=== PATIENT | male | born 1960 | race Caucasian/White ===

== ENCOUNTER 2018-10-20 04:46 | Inpatient (IN) ==
[2018-10-20] MEDS ORDERED: ASPIRIN 325 MG TABLET PO STA (05:10)
[2018-10-20 05:26] LABS: Basophils % 0.2 % (0.0-0.8); Eosinophils # 0.1 10*3/uL (0.0-0.87); Eosinophils % 0.6 % (0.00-10.9); Hematocrit 42.7 VOL% (42.0-52.0); Hemoglobin 14.8 GM/DL (14.0-18.0); Immature Granulocytes % 0.4 %; Immature Granulocytes Absolute 0.05 #; Lymphocytes # 2.5 10*3/uL (1.4-4.0); Lymphocytes % 20.8 % (21.2-54.2); Mean Corpuscular HGB Conc 34.7 GM/DL (32-36); Mean Corpuscular Hemoglobin 33 PG (27-34); Mean Corpuscular Volume 95.7 FL (87-102); Mean Platelet Volume 10.8 FL (9.6-12.0); Monocytes # 1.2 10*3/uL (0.11-0.8); Monocytes % 9.7 % (1.7-12.7); Neutrophils # 8.3 10*3/uL (1.4-7.4); Neutrophils % 68.3 % (38.7-73.9); Platelet Count 196 T/CUMM (130-400); Red Blood Count 4.46 MC/CUMM (3.8-5.5); Red Cell Distribution Width 12.2 % (9.3-17.3); White Blood Count 12.1 T/CUMM (4-12)
[2018-10-20 05:42] LABS: Albumin 3.9 G/DL (3.4-5.0); Bilirubin,Total 0.8 MG/DL (0.2-1.0); Calcium 9.7 MG/DL (8.5-10.1); Osmolality,Calculated 273.7 MOS/KG (273-304); Potassium 3.5 MMOL/L (3.5-5.1); Total Protein 7.6 G/DL (6.4-8.3)
[2018-10-20] MEDS ORDERED: MAGNESIUM SULF RIDER 4 GM in PREMIX 1 EACH IV PRN (07:06)
[2018-10-20] MEDS ORDERED: MAGNESIUM SULF RIDER 2 GM in PREMIX 1 EACH IV PRN ×2 (07:06→10:17)
[2018-10-20] MEDS ORDERED: NITROGLYCERIN SL 0.4 MG TABLET SL PRN (07:09)
[2018-10-20] MEDS ORDERED: NITROGLYCERIN 2% OINT 1 INCH/GM PACK TOP STA (07:15)
[2018-10-20] MEDS ORDERED: NITROGLYCERIN 2% OINT 1 INCH/GM PACK TOP ONE (07:16)
[2018-10-20] MEDS: ENOXAPARIN 80 MG/0.8 ML SYRINGE SUBCUT SCH ×2 (09:55→20:31)
[2018-10-20] MEDS: METOPROLOL TARTRATE 50 MG TABLET PO SCH ×2 (09:56→20:30)
[2018-10-20] MEDS: TICAGRELOR 90 MG TABLET PO SCH ×2 (09:56→20:31)
[2018-10-20] MEDS: ASPIRIN EC 81 MG TABLET PO SCH (09:59)
[2018-10-20] MEDS: LISINOPRIL 20 MG TABLET PO SCH (09:59)
[2018-10-20] MEDS: buPROPion SR 150 MG TABLET PO SCH ×2 (10:00→20:32)
[2018-10-20] MEDS ORDERED: diphenhydrAMINE CAP 25 MG CAPSULE PO ONE (10:17)
[2018-10-20] MEDS ORDERED: POTASSIUM CHLORIDE RIDER 10 MEQ in PREMIX 1 EACH IV PRN (10:17)
[2018-10-20] MEDS ORDERED: DIAZEPAM 5 MG TABLET PO ONE (10:17)
[2018-10-20] MEDS: SODIUM CHLORIDE 0.9% 1,000 ML IV SCH ×3 (10:28→22:56)
[2018-10-20] MEDS: PANTOPRAZOLE 40 MG TABLET PO PRN (10:33)
[2018-10-20] MEDS: ALBUTEROL/IPRATROPIUM 3 ML NEB RESP TX SCH ×3 (10:39→18:50)
[2018-10-20 10:40] LABS: Troponin I 0.048 NG/ML (0.00-0.045)
[2018-10-20] MEDS ORDERED: HEPARIN/NACL 0.9% 2 UNITS/ML 1,000 ML IV ONE (10:42)
[2018-10-20] MEDS ORDERED: LIDOCAINE 1% 20 ML VIAL ONE (10:42)
[2018-10-20] MEDS ORDERED: LEVOFLOXACIN INJ 750 MG in PREMIX 1 EACH IV SCH (11:00)
[2018-10-20] MEDS ORDERED: MIDAZOLAM 2 MG/2 ML VIAL ONE (11:03)
[2018-10-20] MEDS ORDERED: HYDROmorphone 2 MG/1 ML VIAL ONE (11:03)
[2018-10-20] MEDS ORDERED: diphenhydrAMINE 50 MG/1 ML VIAL ONE (11:08)
[2018-10-20] MEDS ORDERED: ZALEPLON 5 MG CAPSULE PO PRN (11:34)
[2018-10-20] MEDS ORDERED: ONDANSETRON 4 MG/2 ML VIAL IV PRN (11:34)
[2018-10-20] MEDS ORDERED: IBUPROFEN 800 MG TABLET PO PRN (11:37)
[2018-10-20] MEDS ORDERED: LOVASTATIN 20 MG TABLET PO SCH (21:00)
[2018-10-21] MEDS: ALBUTEROL/IPRATROPIUM 3 ML NEB RESP TX SCH ×3 (00:22→07:55)
[2018-10-21 05:48] LABS: Calcium 8.3 MG/DL (8.5-10.1); Osmolality,Calculated 282.1 MOS/KG (273-304); Potassium 3.8 MMOL/L (3.5-5.1)
[2018-10-21 05:53] LABS: Risk Ratio 5.78; VLDL CHOLESTEROL 29.2 MG/DL
[2018-10-21] MEDS: SODIUM CHLORIDE 0.9% 1,000 ML IV SCH (05:55)
[2018-10-21] MEDS: ENOXAPARIN 80 MG/0.8 ML SYRINGE SUBCUT SCH (07:57)
[2018-10-21 08:06] VITALS: BP 150/83
[2018-10-21] MEDS: TICAGRELOR 90 MG TABLET PO SCH (09:00)
[2018-10-21] MEDS ORDERED: COLCHICINE 0.6 MG TABLET PO SCH (09:00)
[2018-10-21] MEDS ORDERED: ENOXAPARIN 40 MG/0.4 ML SYRINGE SUBCUT SCH (09:00)
[2018-10-21] MEDS: buPROPion SR 150 MG TABLET PO SCH (09:00)
[2018-10-21] MEDS: METOPROLOL TARTRATE 50 MG TABLET PO SCH (09:00)
[2018-10-21] MEDS: ASPIRIN EC 81 MG TABLET PO SCH (09:01)
[2018-10-21] MEDS: LISINOPRIL 20 MG TABLET PO SCH (09:01)
[2018-10-21] MEDS: PANTOPRAZOLE 40 MG TABLET PO PRN (09:06)
[2018-10-21] MEDS ORDERED: SIMVASTATIN 40 MG TABLET PO SCH (21:00)
== END 2018-10-21 11:41 | disposition home or self-care (01) | DRG 191 ==
LOC: N.ED 04:46 → N.EDINP 07:06 → N.TELEN 08:58
PROVIDERS: ADMIT Internal Medicine Cardiovascular Disease; ATTEND Internal Medicine Cardiovascular Disease
PROC: CLCCHCL (ICD-10-PCS; 2018-10-20 11:15)

== ENCOUNTER 2022-06-21 09:44 | Inpatient (IN) ==
[~2022-06-21 09:44] MED LIST: DEXTROSE 10% 250 ML BAG IV PRN; GLUCAGON 1 MG VIAL IM PRN; SODIUM CHLORIDE 0.9% 1,000 ML IV SCH
[2022-06-21] MEDS ORDERED: CLORAZEPATE 3.75 MG TABLET PO PRN (09:52)
[2022-06-21] MEDS ORDERED: MORPHINE 2 MG/1 ML SYRINGE IV PRN (09:53)
[2022-06-21] MEDS ORDERED: NITROGLYCERIN SL 0.4 MG TABLET SL PRN (09:53)
[2022-06-21] MEDS ORDERED: DEXTROSE 10% 250 ML BAG IV PRN (10:00)
[2022-06-21 10:55] LABS: Basophils % 0.3 % (0.0-0.8); Eosinophils # 0.2 10*3/uL (0.0-0.87); Eosinophils % 2.8 % (0.00-10.9); Hematocrit 40.5 VOL% (42.0-52.0); Hemoglobin 13.6 GM/DL (14.0-18.0); Immature Granulocytes % 0.5 %; Immature Granulocytes Absolute 0.04 #; Lymphocytes # 2.5 10*3/uL (1.4-4.0); Mean Corpuscular HGB Conc 33.6 GM/DL (32-36); Mean Corpuscular Volume 97.6 FL (87-102); Mean Platelet Volume 11.5 FL (9.6-12.0); Monocytes % 12.9 % (1.7-12.7); Neutrophils % 50.5 % (38.7-73.9); Platelet Count 211 T/CUMM (130-400); Red Blood Count 4.15 MC/CUMM (3.8-5.5); Red Cell Distribution Width 12.7 % (9.3-17.3); White Blood Count 7.5 T/CUMM (4-12)
[2022-06-21 11:14] LABS: Albumin 3.8 G/DL (3.4-5.0); Bilirubin,Total 0.4 MG/DL (0.20-1.00); Calcium 9.7 MG/DL (8.5-10.1); Potassium 4.2 MMOL/L (3.5-5.1); Total Protein 7.4 G/DL (6.4-8.2)
[2022-06-21] MEDS: CHLORHEXIDINE 0.12% ORAL RINSE 60 ML BOTTLE SWISH/SPIT SCH ×2 (13:32→20:52)
[2022-06-21] MEDS ORDERED: PANTOPRAZOLE 40 MG TABLET PO ONE (15:00)
[2022-06-21] MEDS ORDERED: DIAZEPAM 5 MG TABLET PO ONE (15:00)
[2022-06-21] MEDS: CHLORHEXIDINE 4% SOLN 118 ML BOTTLE TOP SCH ×2 (17:19→20:53)
[2022-06-21 18:06] LABS: Arterial Base Excess iSTAT -2 MMOL/L (-2.5-2.5); Arterial Bicarbonate iSTAT 22.5 MMOL/L (20-26); Arterial O2 Saturation iSTAT 96 % (95-100); Arterial PCO2 iSTAT 38 MM HG (35-48); Arterial PO2 iSTAT 81 MM HG (80-95); Arterial Total CO2 iSTAT 24 MMO/L (23-27); Arterial pH iSTAT 7.383 (7.35-7.45)
[2022-06-21 18:06] LABS: Arterial Base Excess iSTAT 0 MMOL/L (-2.5-2.5); Arterial Bicarbonate iSTAT 25.9 MMOL/L (20-26); Arterial O2 Saturation iSTAT 48 % (95-100); Arterial PCO2 iSTAT 47 MM HG (35-48); Arterial PO2 iSTAT 28 MM HG (80-95); Arterial Total CO2 iSTAT 27 MMO/L (23-27)
[2022-06-21] MEDS: buPROPion SR 150 MG TABLET PO SCH (20:52)
[2022-06-21] MEDS: METOPROLOL TARTRATE 50 MG TABLET PO SCH (20:52)
[2022-06-21] MEDS ORDERED: ROSUVASTATIN 20 MG TABLET PO SCH (21:00)
[2022-06-22] MEDS ORDERED: PAPAVERINE 60 MG/2 ML VIAL ONE (04:16)
[2022-06-22] MEDS ORDERED: VANCOMYCIN 1,000 MG VIAL ONE (04:17)
[2022-06-22] MEDS ORDERED: VANCOMYCIN 500 MG VIAL ONE (04:17)
[2022-06-22] MEDS: CHLORHEXIDINE 4% SOLN 118 ML BOTTLE TOP SCH (04:46)
[2022-06-22] MEDS ORDERED: CEFUROXIME INJ 1,500 MG in SODIUM CHLORIDE 0.9% 100 ML IV ONE (05:00)
[2022-06-22] MEDS ORDERED: VECURONIUM 10 MG VIAL IV ONE ×3 (05:26→08:32)
[2022-06-22] MEDS ORDERED: LIDOCAINE 2% 5 ML VIAL ONE ×2 (05:26→10:14)
[2022-06-22] MEDS ORDERED: ETOMIDATE 40 MG/20 ML VIAL IV ONE (05:29)
[2022-06-22] MEDS ORDERED: ePHEDrine 50 MG/ML VIAL ONE (05:34)
[2022-06-22] MEDS ORDERED: MIDAZOLAM 10 MG/2 ML VIAL ONE ×4 (05:38→09:19)
[2022-06-22] MEDS ORDERED: SODIUM CHLORIDE 0.9% 250 ML IV ONE (05:40)
[2022-06-22] MEDS ORDERED: AMINOCAPROIC ACID 5,000 MG/20 ML VIAL ONE (05:40)
[2022-06-22] MEDS ORDERED: SUFentanil 250 MCG/5 ML AMP ONE ×2 (05:54→05:55)
[2022-06-22] MEDS ORDERED: PANTOPRAZOLE 40 MG TABLET PO ONE (06:00)
[2022-06-22] MEDS ORDERED: DIAZEPAM 5 MG TABLET PO ONE (06:00)
[2022-06-22 07:26] LABS: ABG Base Excess -1.1 MMOL/L (-2.5-2.5); ABG HCO3 23.5 MMOL/L (20-26); ABG Oxygen Saturation 99.4 % (95-100); ABG PCO2 44.8 MM HG (35-48); ABG PH 7.351 (7.35-7.45); ABG TCO2 21.7 MMOL/L (23-27); Glucose Heart Surgery 121 MG/DL (74-106); Hematocrit Heart Surgery 40.3 PERCENT (42-52); Hemoglobin Heart Surgery 13.1 G/DL (14.0-18.0); Ionized Calcium Arterial 1.22 MMOL/L (1.21-1.46); PCO2 Patient Temp Arterial 44.8 MMHG; PH Patient Temp Arterial 7.351; Patient Temperature 37 CELCIUS; Potassium Heart/CVR 4.1 MMOL/L (3.5-5.1); Sodium Heart/CVR 141 MMOL/L (135-145)
[2022-06-22 08:06] LABS: RBC,Urine <1 /HPF (0-4); Squamous Epithelial Cell,Urine Occasional /HPF (0-10)
[2022-06-22 08:07] LABS: Bilirubin,Urine Negative (Negative); Blood, Urine Trace mg/dL (Negative); Glucose,Urine (UA) Negative (Negative); Ketones,Urine Negative (Negative); Nitrite,Urine Negative (Negative); Protein,Urine Negative (Negative); Urine Appearance Clear (Clear); Urine Color Yellow (Yellow); Urine Urobilinogen 0.2 eU/dL (<2.0)
[2022-06-22] MEDS ORDERED: SEVOFLURANE 1 UNIT/15 MINUTE INH ONE ×12 (08:14→10:02)
[2022-06-22] MEDS ORDERED: SODIUM CHLORIDE 0.9% 100 ML IV ONE (08:14)
[2022-06-22] MEDS ORDERED: NITROPRUSSIDE 50 MG/2 ML VIAL ONE (08:59)
[2022-06-22] MEDS ORDERED: POTASSIUM CHLORIDE RIDER 20 MEQ/100 ML PREMIX IV ONE (08:59)
[2022-06-22] MEDS ORDERED: SODIUM BICARBONATE 50 MEQ/50 ML VIAL IV ONE ×2 (08:59→10:16)
[2022-06-22] MEDS ORDERED: PHENYLEPHRINE DRIP 40 MG/250 ML PREMIX IV ONE (09:00)
[2022-06-22] MEDS ORDERED: CALCIUM CHLORIDE 1,000 MG/10 ML SYRINGE IV ONE (09:00)
[2022-06-22] MEDS ORDERED: HEPARIN/NACL 0.9% 2 UNITS/ML 1,000 UNIT/500 ML BAG IV ONE (09:05)
[2022-06-22 09:07] LABS: Hematocrit Heart Surgery 29.4 PERCENT (42-52); Hemoglobin Heart Surgery 9.5 G/DL (14.0-18.0); PCO2 Patient Temp Venous 44.7 MM HG; PH Patient Temp Venous 7.35; PO2 Patient Temp Venous 44.3 MM HG; VBG HCO3 23.4 MEQ/L (24-28); VBG Oxygen Saturation 82.1 %; VBG PCO2 49.2 MMHG (41-51); VBG PH 7.322; VBG PO2 50.8 MMHG (17-40); VBG Total CO2 23.6 MMOL/L
[2022-06-22] MEDS ORDERED: PHENYLEPHRINE DRIP 20 MG/250 ML PREMIX IV ONE (09:08)
[2022-06-22] MEDS: buPROPion SR 150 MG TABLET PO SCH (09:18)
[2022-06-22] MEDS: CHLORHEXIDINE 0.12% ORAL RINSE 60 ML BOTTLE SWISH/SPIT SCH ×2 (09:18→20:32)
[2022-06-22] MEDS: METOPROLOL TARTRATE 50 MG TABLET PO SCH (09:18)
[2022-06-22 09:34] LABS: Hematocrit Heart Surgery 30.3 PERCENT (42-52); Hemoglobin Heart Surgery 9.8 G/DL (14.0-18.0); PCO2 Patient Temp Venous 43.3 MM HG; PH Patient Temp Venous 7.395; PO2 Patient Temp Venous 41.2 MM HG; Potassium Heart/CVR 5.5 MMOL/L (3.5-5.1); VBG Base Excess 1.5 MEQ/L (0-4); VBG HCO3 25.4 MEQ/L (24-28); VBG Oxygen Saturation 78.2 %; VBG PCO2 45.5 MMHG (41-51); VBG PH 7.381; VBG PO2 44.2 MMHG (17-40); VBG Total CO2 24.7 MMOL/L
[2022-06-22] MEDS ORDERED: CALCIUM CHLORIDE 1,000 MG/10 ML VIAL IV ONE (09:41)
[2022-06-22 10:03] LABS: ABG Base Excess 0.3 MMOL/L (-2.5-2.5); ABG HCO3 24.6 MMOL/L (20-26); ABG PCO2 43.6 MM HG (35-48); ABG PH 7.377 (7.35-7.45); ABG PO2 82.5 MM HG (80-95); ABG TCO2 23.1 MMOL/L (23-27); Glucose Heart Surgery 210 MG/DL (74-106); Hematocrit Heart Surgery 33.3 PERCENT (42-52); Hemoglobin Heart Surgery 10.8 G/DL (14.0-18.0); Ionized Calcium Arterial 1.24 MMOL/L (1.21-1.46); PCO2 Patient Temp Arterial 43.6 MMHG; PH Patient Temp Arterial 7.377; PO2 Patient Temp Arterial 82.5 MM HG; Patient Temperature 37 CELCIUS; Potassium Heart/CVR 4.7 MMOL/L (3.5-5.1); Sodium Heart/CVR 136 MMOL/L (135-145)
[2022-06-22] MEDS ORDERED: methylPREDNISolone SOD SUC 1,000 MG/8 ML VIAL ONE (10:14)
[2022-06-22] MEDS ORDERED: DEXTROSE 5% KCL 20 MEQ 20 MEQ/1,000 ML BAG IV ONE (10:14)
[2022-06-22] MEDS ORDERED: MAGNESIUM SULFATE 5 GM/10 ML VIAL IV ONE (10:14)
[2022-06-22] MEDS ORDERED: ALBUMIN 25% 25 GM/100 ML VIAL IV ONE (10:14)
[2022-06-22] MEDS ORDERED: PROTAMINE SULFATE 250 MG/25 ML VIAL IV ONE (10:14)
[2022-06-22] MEDS ORDERED: FUROSEMIDE 20 MG/2 ML VIAL ONE (10:15)
[2022-06-22] MEDS ORDERED: HEPARIN 10,000 UNIT/10 ML VIAL ONE (10:15)
[2022-06-22] MEDS ORDERED: MANNITOL 12.5 GM/50 ML VIAL IV ONE (10:15)
[2022-06-22] MEDS ORDERED: PROTAMINE SULFATE 50 MG/5 ML VIAL IV ONE (10:15)
[2022-06-22] MEDS ORDERED: ACETAMINOPHEN 650 MG SUPP RECTAL PRN (10:23)
[2022-06-22] MEDS ORDERED: NITROPRUSSIDE 100 MG in DEXTROSE 5% 250 ML IV PRN (10:23)
[2022-06-22] MEDS ORDERED: ONDANSETRON 4 MG/2 ML VIAL IV PRN (10:23)
[2022-06-22] MEDS ORDERED: MIDAZOLAM 2 MG/2 ML VIAL IV PRN (10:23)
[2022-06-22] MEDS ORDERED: INSULIN REGULAR 100 UNIT/ML IV ONE (10:23)
[2022-06-22] MEDS ORDERED: PHENYLEPHRINE DRIP 40 MG/250 ML PREMIX IV PRN (10:23)
[2022-06-22] MEDS ORDERED: CHLORHEXIDINE 4% SOLN 118 ML BOTTLE TOP PRN (10:23)
[2022-06-22] MEDS ORDERED: MAGNESIUM SULF RIDER 4 GM/100 ML PREMIX IV PRN (10:23)
[2022-06-22] MEDS ORDERED: MIDAZOLAM 10 MG/2 ML VIAL IV PRN (10:23)
[2022-06-22] MEDS ORDERED: CALCIUM CHLORIDE 1,000 MG/10 ML SYRINGE IV PRN (10:23)
[2022-06-22] MEDS ORDERED: DEXTROSE 10% 250 ML BAG IV PRN ×2 (10:23)
[2022-06-22] MEDS ORDERED: POTASSIUM CHLORIDE RIDER 10 MEQ/100 ML PREMIX IV PRN (10:23)
[2022-06-22] MEDS ORDERED: MORPHINE 10 MG/1 ML VIAL IV PRN (10:23)
[2022-06-22] MEDS ORDERED: INSULIN REGULAR 100 UNIT/ML IV PRN (10:23)
[2022-06-22] MEDS ORDERED: MAGNESIUM SULF RIDER 2 GM/50 ML PREMIX IV PRN (10:23)
[2022-06-22] MEDS ORDERED: VECURONIUM 10 MG VIAL IV PRN ×2 (10:23)
[2022-06-22] MEDS ORDERED: MORPHINE 2 MG/1 ML SYRINGE ONE (10:29)
[2022-06-22] MEDS ORDERED: MIDAZOLAM 2 MG/2 ML VIAL ONE (10:29)
[2022-06-22] MEDS ORDERED: SODIUM CHLORIDE 0.45% 1,000 ML IV SCH ×2 (10:30)
[2022-06-22] MEDS ORDERED: INSULIN REGULAR DRIP 100 ML IV SCH (10:30)
[2022-06-22 11:06] LABS: ABG Base Excess 1.9 MMOL/L (-2.5-2.5); ABG HCO3 26.1 MMOL/L (20-26); ABG Oxygen Saturation 96.6 % (95-100); ABG PCO2 43.4 MM HG (35-48); ABG PH 7.403 (7.35-7.45); ABG PO2 86.6 MM HG (80-95); ABG TCO2 23.7 MMOL/L (23-27); Glucose Heart Surgery 180 MG/DL (74-106); Hematocrit Heart Surgery 39.5 PERCENT (42-52); Hemoglobin Heart Surgery 12.9 G/DL (14.0-18.0); Potassium Heart/CVR 3.9 MMOL/L (3.5-5.1)
[2022-06-22 11:09] LABS: Basophils % 0.3 % (0.0-0.8); Eosinophils # 0.1 10*3/uL (0.0-0.87); Eosinophils % 0.7 % (0.00-10.9); Hematocrit 36.9 VOL% (42.0-52.0); Hemoglobin 12.5 GM/DL (14.0-18.0); Immature Granulocytes % 0.9 %; Lymphocytes # 1.2 10*3/uL (1.4-4.0); Lymphocytes % 10.5 % (21.2-54.2); Mean Corpuscular HGB Conc 33.9 GM/DL (32-36); Mean Corpuscular Volume 97.4 FL (87-102); Mean Platelet Volume 11.6 FL (9.6-12.0); Monocytes # 0.8 10*3/uL (0.11-0.8); Monocytes % 6.6 % (1.7-12.7); Platelet Count 174 T/CUMM (130-400); Red Blood Count 3.79 MC/CUMM (3.8-5.5); Red Cell Distribution Width 12.6 % (9.3-17.3); White Blood Count 11.4 T/CUMM (4-12)
[2022-06-22] MEDS: POTASSIUM CHLORIDE RIDER 20 MEQ/100 ML PREMIX IV PRN ×3 (11:20→14:20)
[2022-06-22 11:22] LABS: PT Patient Result 11.4 SECS (10.1-12.1); Partial Thromboplastin Time 27.6 SECS (23.7-32.9)
[2022-06-22] MEDS ORDERED: DEXMEDETOMIDINE 200 MCG in SODIUM CHLORIDE 0.9% 48 ML IV PRN (11:23)
[2022-06-22 11:27] LABS: CKMB % 5.19 %
[2022-06-22 11:30] LABS: High Sensitive Troponin I* 2922.8 ng/L (0-78)
[2022-06-22 11:35] LABS: Albumin 3.7 G/DL (3.4-5.0); Bilirubin,Total 0.7 MG/DL (0.20-1.00); Calcium 9.3 MG/DL (8.5-10.1); Osmolality,Calculated 281.4 MOS/KG (273-304); Potassium 3.9 MMOL/L (3.5-5.1); Total Protein 6.9 G/DL (6.4-8.2)
[2022-06-22 12:13] LABS: ABG Base Excess 1.7 MMOL/L (-2.5-2.5); ABG HCO3 25.9 MMOL/L (20-26); ABG Oxygen Saturation 97.7 % (95-100); ABG PCO2 42.6 MM HG (35-48); ABG PH 7.404 (7.35-7.45); ABG PO2 99.6 MM HG (80-95); ABG TCO2 23.3 MMOL/L (23-27); Glucose Heart Surgery 160 MG/DL (74-106); Hematocrit Heart Surgery 40.1 PERCENT (42-52); Potassium Heart/CVR 4.7 MMOL/L (3.5-5.1)
[2022-06-22] MEDS: ALBUMIN 5% 12.5 GM/250 ML VIAL IV PRN ×5 (13:10→21:23)
[2022-06-22] MEDS: MORPHINE 2 MG/1 ML SYRINGE IV PRN (13:24)
[2022-06-22 14:05] LABS: ABG Base Excess 0.1 MMOL/L (-2.5-2.5); ABG HCO3 24.5 MMOL/L (20-26); ABG Oxygen Saturation 96.8 % (95-100); ABG PCO2 49.7 MM HG (35-48); ABG PH 7.337 (7.35-7.45); ABG PO2 95.5 MM HG (80-95); ABG TCO2 23.6 MMOL/L (23-27); Glucose Heart Surgery 159 MG/DL (74-106); Hematocrit Heart Surgery 38.6 PERCENT (42-52); Hemoglobin Heart Surgery 12.6 G/DL (14.0-18.0); Potassium Heart/CVR 4.4 MMOL/L (3.5-5.1)
[2022-06-22 15:00] LABS: ABG Base Excess 0.2 MMOL/L (-2.5-2.5); ABG HCO3 24.5 MMOL/L (20-26); ABG PCO2 46.3 MM HG (35-48); ABG PH 7.359 (7.35-7.45); ABG PO2 85.3 MM HG (80-95); ABG TCO2 22.9 MMOL/L (23-27); Glucose Heart Surgery 164 MG/DL (74-106); Potassium Heart/CVR 5.2 MMOL/L (3.5-5.1)
[2022-06-22] MEDS ORDERED: HYDROmorphone 1 MG/1 ML SYRINGE IV PRN (15:09)
[2022-06-22 16:03] LABS: ABG Base Excess 0.1 MMOL/L (-2.5-2.5); ABG HCO3 24.5 MMOL/L (20-26); ABG Oxygen Saturation 96.5 % (95-100); ABG PCO2 43.1 MM HG (35-48); ABG PH 7.378 (7.35-7.45); ABG TCO2 22.6 MMOL/L (23-27); Glucose Heart Surgery 163 MG/DL (74-106); Hematocrit Heart Surgery 36.9 PERCENT (42-52); Potassium Heart/CVR 4.7 MMOL/L (3.5-5.1)
[2022-06-22] MEDS: INSULIN LISPRO 100 UNIT/ML SUBCUT SCH ×2 (16:37→20:32)
[2022-06-22] MEDS: CEFUROXIME INJ 1,500 MG in SODIUM CHLORIDE 0.9% 100 ML IV SCH (17:50)
[2022-06-22] MEDS ORDERED: FUROSEMIDE 40 MG/4 ML VIAL IV PRN (18:12)
[2022-06-22 18:20] LABS: ABG Base Excess 0.7 MMOL/L (-2.5-2.5); ABG PCO2 41.3 MM HG (35-48); ABG PH 7.399 (7.35-7.45); ABG TCO2 22.6 MMOL/L (23-27); Glucose Heart Surgery 160 MG/DL (74-106); Hematocrit Heart Surgery 37.8 PERCENT (42-52); Hemoglobin Heart Surgery 12.3 G/DL (14.0-18.0); Potassium Heart/CVR 4.5 MMOL/L (3.5-5.1)
[2022-06-22] MEDS: HYDROmorphone 1 MG/1 ML SYRINGE IV PRN (18:30)
[2022-06-22 18:39] LABS: CKMB % 2.86 %; High Sensitive Troponin I* 2540.3 ng/L (0-78)
[2022-06-22 19:13] LABS: ABG Base Excess -1.5 MMOL/L (-2.5-2.5); ABG HCO3 23.1 MMOL/L (20-26); ABG Oxygen Saturation 91.4 % (95-100); ABG PCO2 43.9 MM HG (35-48); ABG PH 7.351 (7.35-7.45); ABG PO2 65.8 MM HG (80-95); ABG TCO2 21.6 MMOL/L (23-27); Glucose Heart Surgery 170 MG/DL (74-106); Hemoglobin Heart Surgery 12.3 G/DL (14.0-18.0); Potassium Heart/CVR 4.4 MMOL/L (3.5-5.1)
[2022-06-22] MEDS: LACTATED RINGERS 250 ML IV PRN ×3 (19:45→20:17)
[2022-06-22 20:32] LABS: ABG Base Excess -0.3 MMOL/L (-2.5-2.5); ABG HCO3 24.1 MMOL/L (20-26); ABG Oxygen Saturation 92.4 % (95-100); ABG PCO2 42.9 MM HG (35-48); ABG PH 7.374 (7.35-7.45); ABG TCO2 22.4 MMOL/L (23-27); Glucose Heart Surgery 156 MG/DL (74-106); Hematocrit Heart Surgery 35.6 PERCENT (42-52); Hemoglobin Heart Surgery 11.5 G/DL (14.0-18.0); Potassium Heart/CVR 4.5 MMOL/L (3.5-5.1)
[2022-06-23] MEDS: MORPHINE 2 MG/1 ML SYRINGE IV PRN (00:54)
[2022-06-23] MEDS: INSULIN LISPRO 100 UNIT/ML SUBCUT SCH ×5 (00:59→20:47)
[2022-06-23 02:36] LABS: ABG Base Excess 2.5 MMOL/L (-2.5-2.5); ABG HCO3 26.5 MMOL/L (20-26); ABG Oxygen Saturation 89.5 % (95-100); ABG PCO2 40.9 MM HG (35-48); ABG PH 7.428 (7.35-7.45); ABG PO2 57.6 MM HG (80-95); Glucose Heart Surgery 157 MG/DL (74-106); Hematocrit Heart Surgery 36.5 PERCENT (42-52); Hemoglobin Heart Surgery 11.8 G/DL (14.0-18.0); Potassium Heart/CVR 3.9 MMOL/L (3.5-5.1)
[2022-06-23] MEDS: HYDROmorphone 1 MG/1 ML SYRINGE IV PRN ×2 (02:45→07:32)
[2022-06-23 03:04] LABS: CKMB % 1.48 %
[2022-06-23 04:40] LABS: ABG Base Excess 2.5 MMOL/L (-2.5-2.5); ABG HCO3 26.6 MMOL/L (20-26); ABG Oxygen Saturation 92.4 % (95-100); ABG PCO2 44.3 MM HG (35-48); ABG PH 7.404 (7.35-7.45); ABG PO2 66.8 MM HG (80-95); ABG TCO2 24.7 MMOL/L (23-27); Basophils % 0.1 % (0.0-0.8); Glucose Heart Surgery 149 MG/DL (74-106); Hematocrit 33.9 VOL% (42.0-52.0); Hemoglobin 11.6 GM/DL (14.0-18.0); Hemoglobin Heart Surgery 11.7 G/DL (14.0-18.0); Immature Granulocytes % 0.5 %; Lymphocytes # 1.1 10*3/uL (1.4-4.0); Lymphocytes % 5.8 % (21.2-54.2); Mean Corpuscular HGB Conc 34.2 GM/DL (32-36); Mean Corpuscular Volume 97.1 FL (87-102); Mean Platelet Volume 11.2 FL (9.6-12.0); Monocytes # 1.6 10*3/uL (0.11-0.8); Monocytes % 8.1 % (1.7-12.7); Neutrophils % 85.5 % (38.7-73.9); Platelet Count 196 T/CUMM (130-400); Red Blood Count 3.49 MC/CUMM (3.8-5.5); Red Cell Distribution Width 12.8 % (9.3-17.3); White Blood Count 19.7 T/CUMM (4-12)
[2022-06-23 04:57] LABS: Albumin 4.3 G/DL (3.4-5.0); Bilirubin,Direct 0.2 MG/DL (0.0-0.20); Bilirubin,Total 0.7 MG/DL (0.20-1.00); Calcium 9.2 MG/DL (8.5-10.1); Osmolality,Calculated 294.7 MOS/KG (273-304); Potassium 4.1 MMOL/L (3.5-5.1); Total Protein 7.3 G/DL (6.4-8.2)
[2022-06-23] MEDS: POTASSIUM CHLORIDE RIDER 20 MEQ/100 ML PREMIX IV PRN (05:07)
[2022-06-23] MEDS: CEFUROXIME INJ 1,500 MG in SODIUM CHLORIDE 0.9% 100 ML IV SCH ×2 (05:45→18:10)
[2022-06-23] MEDS ORDERED: DEXTROSE 50% 25 GM/50 ML VIAL IV PRN (07:36)
[2022-06-23] MEDS ORDERED: GLUCAGON 1 MG VIAL IM PRN (07:36)
[2022-06-23] MEDS: PANTOPRAZOLE 40 MG TABLET PO SCH (08:18)
[2022-06-23] MEDS: oxyCODONE/ACETAMINOPHEN 5-325 MG TABLET PO PRN ×3 (08:18→17:50)
[2022-06-23] MEDS ORDERED: METOPROLOL TARTRATE 25 MG TABLET PO ONE (08:36)
[2022-06-23] MEDS: KETOROLAC 15 MG/1 ML VIAL IV SCH ×3 (09:01→20:57)
[2022-06-23] MEDS: buPROPion SR 150 MG TABLET PO SCH ×2 (09:04→20:50)
[2022-06-23] MEDS: ASCORBIC ACID 500 MG TABLET PO SCH ×2 (09:04→20:49)
[2022-06-23] MEDS: FENOFIBRATE 160 MG TABLET PO SCH (09:04)
[2022-06-23] MEDS: MULTIVITAMIN (CENTRUM) TABLET PO SCH (09:04)
[2022-06-23] MEDS: THIAMINE 100 MG TABLET PO SCH (09:04)
[2022-06-23] MEDS: CHLORHEXIDINE 0.12% ORAL RINSE 60 ML BOTTLE SWISH/SPIT SCH ×2 (09:05→20:58)
[2022-06-23] MEDS: ASPIRIN EC 81 MG TABLET PO SCH (09:05)
[2022-06-23] MEDS ORDERED: DEXTROSE 10% 250 ML BAG IV PRN (09:14)
[2022-06-23] MEDS: ALBUTEROL/IPRATROPIUM 3 ML NEB RESP TX SCH ×3 (09:50→21:41)
[2022-06-23] MEDS ORDERED: ACETAMINOPHEN 325 MG TABLET PO PRN (10:05)
[2022-06-23] MEDS ORDERED: SODIUM CHLOR 0.45% KCL 20 MEQ 20 MEQ/1,000 ML BAG IV SCH (10:05)
[2022-06-23] MEDS ORDERED: ONDANSETRON 4 MG/2 ML VIAL IV PRN (10:05)
[2022-06-23] MEDS ORDERED: ZALEPLON 5 MG CAPSULE PO PRN (10:05)
[2022-06-23] MEDS ORDERED: MAGNESIUM HYDROXIDE SUSP 30 ML UDCUP PO PRN (10:05)
[2022-06-23] MEDS ORDERED: MAGNESIUM SULF RIDER 2 GM/50 ML PREMIX IV PRN (10:05)
[2022-06-23] MEDS ORDERED: MAGNESIUM SULF RIDER 4 GM/100 ML PREMIX IV PRN (10:05)
[2022-06-23] MEDS: ALUMINUM/MAGNES/SIMETH MAX STR 30 ML UDCUP PO PRN ×2 (10:48→20:58)
[2022-06-23 11:47] LABS: CKMB % 0.91 %; High Sensitive Troponin I* 1913.7 ng/L (0-78)
[2022-06-23] MEDS ORDERED: CALCIUM CARBONATE CHEW 500 MG TABLET PO PRN (12:44)
[2022-06-23] MEDS ORDERED: ALUM/MAG/SIMETH/LIDO VISC 1:1 30 ML BOTTLE PO ONE (12:44)
[2022-06-23] MEDS: FOLIC ACID 1 MG TABLET PO SCH (20:49)
[2022-06-23] MEDS: ROSUVASTATIN 20 MG TABLET PO SCH (20:49)
[2022-06-23] MEDS: METOPROLOL TARTRATE 25 MG TABLET PO SCH (20:50)
[2022-06-24] MEDS: ALBUTEROL/IPRATROPIUM 3 ML NEB RESP TX SCH ×4 (00:09→19:14)
[2022-06-24] MEDS: HYDROmorphone 1 MG/1 ML SYRINGE IV PRN (02:10)
[2022-06-24] MEDS: KETOROLAC 15 MG/1 ML VIAL IV SCH ×4 (03:40→21:43)
[2022-06-24 05:49] LABS: Basophils % 0.1 % (0.0-0.8); Eosinophils % 0.1 % (0.00-10.9); Hematocrit 32.4 VOL% (42.0-52.0); Hemoglobin 10.6 GM/DL (14.0-18.0); Immature Granulocytes % 0.6 %; Immature Granulocytes Absolute 0.09 #; Lymphocytes % 13.3 % (21.2-54.2); Mean Corpuscular HGB Conc 32.7 GM/DL (32-36); Mean Corpuscular Volume 101.9 FL (87-102); Mean Platelet Volume 12.2 FL (9.6-12.0); Monocytes # 1.5 10*3/uL (0.11-0.8); Monocytes % 9.5 % (1.7-12.7); Neutrophils % 76.4 % (38.7-73.9); Platelet Count 156 T/CUMM (130-400); Red Blood Count 3.18 MC/CUMM (3.8-5.5); Red Cell Distribution Width 12.7 % (9.3-17.3); White Blood Count 15.3 T/CUMM (4-12)
[2022-06-24] MEDS ORDERED: FUROSEMIDE 40 MG/4 ML VIAL IV ONE (06:00)
[2022-06-24 06:17] LABS: Albumin 3.7 G/DL (3.4-5.0); Bilirubin,Direct 0.16 MG/DL (0.0-0.20); Bilirubin,Total 0.5 MG/DL (0.20-1.00); Calcium 8.6 MG/DL (8.5-10.1); Potassium 4.2 MMOL/L (3.5-5.1); Total Protein 6.2 G/DL (6.4-8.2)
[2022-06-24 06:20] LABS: Alanine Aminotransferase 28 U/L (16-61); Albumin 3.6 G/DL (3.4-5.0); Alkaline Phosphatase 54 U/L (45-117); Aspartate Amino Transferase 36 U/L (0-37); Bilirubin,Indirect 0.3 MG/DL (0.0-1.0); Total Protein 6.5 G/DL (6.4-8.2)
[2022-06-24] MEDS: INSULIN LISPRO 100 UNIT/ML SUBCUT SCH ×4 (08:02→23:08)
[2022-06-24] MEDS: PANTOPRAZOLE 40 MG TABLET PO SCH (08:08)
[2022-06-24] MEDS: FENOFIBRATE 160 MG TABLET PO SCH (09:39)
[2022-06-24] MEDS: DOCUSATE SODIUM 100 MG CAPSULE PO SCH (09:39)
[2022-06-24] MEDS: MULTIVITAMIN (CENTRUM) TABLET PO SCH (09:39)
[2022-06-24] MEDS: ASCORBIC ACID 500 MG TABLET PO SCH ×2 (09:39→21:44)
[2022-06-24] MEDS: ASPIRIN EC 81 MG TABLET PO SCH (09:40)
[2022-06-24] MEDS: THIAMINE 100 MG TABLET PO SCH (09:40)
[2022-06-24] MEDS: FERROUS SULFATE 325 MG TABLET PO SCH (09:40)
[2022-06-24] MEDS: buPROPion SR 150 MG TABLET PO SCH ×2 (09:40→21:43)
[2022-06-24] MEDS: METOPROLOL TARTRATE 25 MG TABLET PO SCH ×2 (09:40→21:44)
[2022-06-24] MEDS: CHLORHEXIDINE 0.12% ORAL RINSE 60 ML BOTTLE SWISH/SPIT SCH ×2 (09:41→21:35)
[2022-06-24] MEDS: oxyCODONE/ACETAMINOPHEN 5-325 MG TABLET PO PRN ×2 (10:56→21:44)
[2022-06-24] MEDS: ROSUVASTATIN 20 MG TABLET PO SCH (21:43)
[2022-06-24] MEDS: FOLIC ACID 1 MG TABLET PO SCH (21:44)
[2022-06-25] MEDS: ALBUTEROL/IPRATROPIUM 3 ML NEB RESP TX SCH ×4 (00:34→19:30)
[2022-06-25] MEDS: KETOROLAC 15 MG/1 ML VIAL IV SCH ×4 (03:58→21:25)
[2022-06-25] MEDS: oxyCODONE/ACETAMINOPHEN 5-325 MG TABLET PO PRN ×4 (04:00→21:25)
[2022-06-25 05:21] LABS: Basophils % 0.3 % (0.0-0.8); Eosinophils # 0.1 10*3/uL (0.0-0.87); Eosinophils % 0.9 % (0.00-10.9); Hematocrit 33.7 VOL% (42.0-52.0); Hemoglobin 10.7 GM/DL (14.0-18.0); Immature Granulocytes % 0.4 %; Immature Granulocytes Absolute 0.04 #; Lymphocytes # 2.7 10*3/uL (1.4-4.0); Lymphocytes % 25.2 % (21.2-54.2); Mean Corpuscular HGB Conc 31.8 GM/DL (32-36); Mean Corpuscular Volume 102.1 FL (87-102); Mean Platelet Volume 11.8 FL (9.6-12.0); Monocytes # 1.3 10*3/uL (0.11-0.8); Monocytes % 12.2 % (1.7-12.7); Platelet Count 166 T/CUMM (130-400); Red Cell Distribution Width 12.8 % (9.3-17.3); White Blood Count 10.8 T/CUMM (4-12)
[2022-06-25 05:38] LABS: Albumin 3.4 G/DL (3.4-5.0); Bilirubin,Direct 0.12 MG/DL (0.0-0.20); Bilirubin,Total 0.6 MG/DL (0.20-1.00); Calcium 9.1 MG/DL (8.5-10.1); Osmolality,Calculated 284.4 MOS/KG (273-304); Potassium 3.8 MMOL/L (3.5-5.1); Total Protein 6.5 G/DL (6.4-8.2)
[2022-06-25 05:41] LABS: Alanine Aminotransferase 30 U/L (16-61); Albumin 3.3 G/DL (3.4-5.0); Alkaline Phosphatase 54 U/L (45-117); Aspartate Amino Transferase 25 U/L (0-37); Bilirubin,Indirect 0.4 MG/DL (0.0-1.0); Total Protein 6.6 G/DL (6.4-8.2)
[2022-06-25] MEDS: INSULIN LISPRO 100 UNIT/ML SUBCUT SCH ×2 (08:01→11:53)
[2022-06-25] MEDS ORDERED: HYDROmorphone 1 MG/1 ML SYRINGE IV PRN (08:27)
[2022-06-25] MEDS: DOCUSATE SODIUM 100 MG CAPSULE PO SCH (09:15)
[2022-06-25] MEDS: METOPROLOL TARTRATE 25 MG TABLET PO SCH ×2 (09:15→21:24)
[2022-06-25] MEDS: PANTOPRAZOLE 40 MG TABLET PO SCH (09:16)
[2022-06-25] MEDS: FENOFIBRATE 160 MG TABLET PO SCH (09:16)
[2022-06-25] MEDS: ASPIRIN EC 81 MG TABLET PO SCH (09:16)
[2022-06-25] MEDS: ASCORBIC ACID 500 MG TABLET PO SCH ×2 (09:16→21:24)
[2022-06-25] MEDS: POTASSIUM CHLORIDE 20 MEQ TABLET PO PRN ×2 (09:16→09:18)
[2022-06-25] MEDS: MULTIVITAMIN (CENTRUM) TABLET PO SCH (09:16)
[2022-06-25] MEDS: buPROPion SR 150 MG TABLET PO SCH ×2 (09:16→21:23)
[2022-06-25] MEDS: THIAMINE 100 MG TABLET PO SCH (09:16)
[2022-06-25] MEDS: FERROUS SULFATE 325 MG TABLET PO SCH (09:18)
[2022-06-25] MEDS: CHLORHEXIDINE 0.12% ORAL RINSE 60 ML BOTTLE SWISH/SPIT SCH ×2 (14:26→21:47)
[2022-06-25] MEDS: FOLIC ACID 1 MG TABLET PO SCH (21:24)
[2022-06-25] MEDS: ROSUVASTATIN 20 MG TABLET PO SCH (21:24)
[2022-06-26] MEDS: ALBUTEROL/IPRATROPIUM 3 ML NEB RESP TX SCH ×4 (00:54→20:08)
[2022-06-26] MEDS: KETOROLAC 15 MG/1 ML VIAL IV SCH ×4 (03:46→21:12)
[2022-06-26 05:04] LABS: Basophils % 0.2 % (0.0-0.8); Eosinophils # 0.2 10*3/uL (0.0-0.87); Eosinophils % 1.8 % (0.00-10.9); Hematocrit 33.8 VOL% (42.0-52.0); Hemoglobin 11.1 GM/DL (14.0-18.0); Immature Granulocytes % 0.7 %; Immature Granulocytes Absolute 0.07 #; Lymphocytes % 19.8 % (21.2-54.2); Mean Corpuscular HGB Conc 32.8 GM/DL (32-36); Mean Corpuscular Volume 100.6 FL (87-102); Mean Platelet Volume 11.7 FL (9.6-12.0); Monocytes # 1.1 10*3/uL (0.11-0.8); Monocytes % 11.1 % (1.7-12.7); Neutrophils % 66.4 % (38.7-73.9); Platelet Count 177 T/CUMM (130-400); Red Blood Count 3.36 MC/CUMM (3.8-5.5); Red Cell Distribution Width 12.5 % (9.3-17.3)
[2022-06-26 05:26] LABS: Calcium 9.3 MG/DL (8.5-10.1); Osmolality,Calculated 283.3 MOS/KG (273-304); Potassium 4.1 MMOL/L (3.5-5.1)
[2022-06-26] MEDS: DOCUSATE SODIUM 100 MG CAPSULE PO SCH (09:04)
[2022-06-26] MEDS: MULTIVITAMIN (CENTRUM) TABLET PO SCH (09:04)
[2022-06-26] MEDS: ASPIRIN EC 81 MG TABLET PO SCH (09:04)
[2022-06-26] MEDS: FERROUS SULFATE 325 MG TABLET PO SCH (09:05)
[2022-06-26] MEDS: METOPROLOL TARTRATE 25 MG TABLET PO SCH ×2 (09:05→21:12)
[2022-06-26] MEDS: PANTOPRAZOLE 40 MG TABLET PO SCH (09:06)
[2022-06-26] MEDS: ASCORBIC ACID 500 MG TABLET PO SCH ×2 (09:06→21:13)
[2022-06-26] MEDS: THIAMINE 100 MG TABLET PO SCH (09:06)
[2022-06-26] MEDS: buPROPion SR 150 MG TABLET PO SCH ×2 (09:06→21:13)
[2022-06-26] MEDS: FENOFIBRATE 160 MG TABLET PO SCH (09:06)
[2022-06-26] MEDS: CHLORHEXIDINE 0.12% ORAL RINSE 60 ML BOTTLE SWISH/SPIT SCH ×2 (09:19→21:12)
[2022-06-26] MEDS: ROSUVASTATIN 20 MG TABLET PO SCH (21:11)
[2022-06-26] MEDS: FOLIC ACID 1 MG TABLET PO SCH (21:12)
[2022-06-26] MEDS: oxyCODONE/ACETAMINOPHEN 5-325 MG TABLET PO PRN (21:14)
[2022-06-27] MEDS: ALBUTEROL/IPRATROPIUM 3 ML NEB RESP TX SCH ×2 (00:32→07:10)
[2022-06-27] MEDS: KETOROLAC 15 MG/1 ML VIAL IV SCH ×2 (04:11→08:51)
[2022-06-27 05:16] LABS: Basophils % 0.2 % (0.0-0.8); Eosinophils # 0.2 10*3/uL (0.0-0.87); Eosinophils % 2.5 % (0.00-10.9); Hematocrit 31.7 VOL% (42.0-52.0); Hemoglobin 10.7 GM/DL (14.0-18.0); Immature Granulocytes % 1.2 %; Lymphocytes # 2.1 10*3/uL (1.4-4.0); Lymphocytes % 26.2 % (21.2-54.2); Mean Corpuscular HGB Conc 33.8 GM/DL (32-36); Mean Corpuscular Volume 99.1 FL (87-102); Mean Platelet Volume 11.4 FL (9.6-12.0); Monocytes % 12.4 % (1.7-12.7); Neutrophils % 57.5 % (38.7-73.9); Platelet Count 188 T/CUMM (130-400); Red Cell Distribution Width 12.3 % (9.3-17.3); White Blood Count 8.1 T/CUMM (4-12)
[2022-06-27 05:39] LABS: Alanine Aminotransferase 38 U/L (16-61); Albumin 3.2 G/DL (3.4-5.0); Alkaline Phosphatase 58 U/L (45-117); Aspartate Amino Transferase 26 U/L (0-37); Bilirubin,Indirect 0.4 MG/DL (0.0-1.0); Blood Urea Nitrogen 20 MG/DL (7-18); Calcium 9.4 MG/DL (8.5-10.1); Carbon Dioxide 26 MMOL/L (21-32); Chloride 107 MMOL/L (98-107); Glucose 90 MG/DL (74-106); Osmolality,Calculated 283.3 MOS/KG (273-304); Potassium 3.7 MMOL/L (3.5-5.1); Sodium 141 MMOL/L (136-145); Total Protein 6.6 G/DL (6.4-8.2)
[2022-06-27 07:50] VITALS: BP 108/74
[2022-06-27] MEDS: MULTIVITAMIN (CENTRUM) TABLET PO SCH (08:51)
[2022-06-27] MEDS: ASPIRIN EC 81 MG TABLET PO SCH (08:51)
[2022-06-27] MEDS: METOPROLOL TARTRATE 25 MG TABLET PO SCH (08:52)
[2022-06-27] MEDS: FERROUS SULFATE 325 MG TABLET PO SCH (08:52)
[2022-06-27] MEDS: DOCUSATE SODIUM 100 MG CAPSULE PO SCH (08:52)
[2022-06-27] MEDS: ASCORBIC ACID 500 MG TABLET PO SCH (08:54)
[2022-06-27] MEDS: FENOFIBRATE 160 MG TABLET PO SCH (08:54)
[2022-06-27] MEDS: buPROPion SR 150 MG TABLET PO SCH (08:54)
[2022-06-27] MEDS: PANTOPRAZOLE 40 MG TABLET PO SCH (08:55)
[2022-06-27] MEDS: CHLORHEXIDINE 0.12% ORAL RINSE 60 ML BOTTLE SWISH/SPIT SCH (08:56)
[2022-06-27] MEDS: THIAMINE 100 MG TABLET PO SCH (08:56)
== END 2022-06-27 12:03 | disposition home health service (06) | DRG 236 ==
LOC: N.TELES 09:47 → N.CVR 06-22 10:22 → N.ICU 06-23 11:04 → N.TELES 06-23 19:10

== ENCOUNTER 2022-07-03 21:50 | Inpatient (IN) ==
[2022-07-03] MEDS ORDERED: ONDANSETRON 4 MG/2 ML VIAL IV PRN (23:24)
[2022-07-03] MEDS ORDERED: MAGNESIUM SULF RIDER 4 GM/100 ML PREMIX IV PRN (23:28)
[2022-07-03] MEDS ORDERED: MAGNESIUM SULF RIDER 2 GM/50 ML PREMIX IV PRN (23:28)
[2022-07-03] MEDS: MORPHINE 2 MG/1 ML SYRINGE IV PRN (23:49)
[2022-07-04] MEDS ORDERED: PANTOPRAZOLE 40 MG TABLET PO PRN ×2 (00:50→02:00)
[2022-07-04] MEDS ORDERED: MORPHINE 2 MG/1 ML SYRINGE IV PRN (01:29)
[2022-07-04] MEDS ORDERED: MAGNESIUM SULF RIDER 2 GM/50 ML PREMIX IV PRN (01:32)
[2022-07-04] MEDS ORDERED: MAGNESIUM SULF RIDER 4 GM/100 ML PREMIX IV PRN (01:32)
[2022-07-04] MEDS: MORPHINE 2 MG/1 ML SYRINGE IV PRN ×2 (03:47→08:29)
[2022-07-04] MEDS: oxyCODONE/ACETAMINOPHEN 5-325 MG TABLET PO PRN ×4 (06:11→23:06)
[2022-07-04 07:23] LABS: Basophils % 0.1 % (0.0-0.8); Eosinophils # 0.1 10*3/uL (0.0-0.87); Eosinophils % 0.6 % (0.00-10.9); Hemoglobin 10.8 GM/DL (14.0-18.0); Immature Granulocytes % 0.6 %; Immature Granulocytes Absolute 0.08 #; Lymphocytes # 2.1 10*3/uL (1.4-4.0); Lymphocytes % 14.9 % (21.2-54.2); Mean Corpuscular HGB Conc 33.8 GM/DL (32-36); Mean Platelet Volume 10.9 FL (9.6-12.0); Monocytes # 1.2 10*3/uL (0.11-0.8); Monocytes % 8.2 % (1.7-12.7); Neutrophils % 75.6 % (38.7-73.9); Platelet Count 338 T/CUMM (130-400); Red Cell Distribution Width 12.7 % (9.3-17.3); White Blood Count 14.1 T/CUMM (4-12)
[2022-07-04] MEDS ORDERED: FUROSEMIDE 40 MG/4 ML VIAL IV SCH (08:00)
[2022-07-04] MEDS: IBUPROFEN 800 MG TABLET PO SCH ×2 (08:09→21:22)
[2022-07-04] MEDS: METOPROLOL TARTRATE 25 MG TABLET PO SCH ×2 (08:09→21:21)
[2022-07-04] MEDS: ASPIRIN EC 81 MG TABLET PO SCH (08:09)
[2022-07-04] MEDS: ASCORBIC ACID 500 MG TABLET PO SCH ×2 (08:10→21:21)
[2022-07-04] MEDS: buPROPion SR 150 MG TABLET PO SCH ×2 (08:10→21:21)
[2022-07-04] MEDS: FENOFIBRATE 160 MG TABLET PO SCH (08:10)
[2022-07-04] MEDS: PANTOPRAZOLE 40 MG TABLET PO SCH (08:10)
[2022-07-04] MEDS: ONDANSETRON 4 MG TABLET PO SCH (08:10)
[2022-07-04] MEDS: FUROSEMIDE 40 MG/4 ML VIAL IV SCH ×2 (08:11→15:55)
[2022-07-04 08:20] LABS: Albumin 3.7 G/DL (3.4-5.0); Bilirubin,Total 0.5 MG/DL (0.20-1.00); Calcium 9.6 MG/DL (8.5-10.1); Osmolality,Calculated 279.4 MOS/KG (273-304); Potassium 3.9 MMOL/L (3.5-5.1); Total Protein 7.1 G/DL (6.4-8.2)
[2022-07-04] MEDS: methylPREDNISolone SOD SUC 40 MG/1 ML VIAL IV SCH ×3 (11:17→22:10)
[2022-07-04] MEDS: LEVOFLOXACIN INJ 500 MG/100 ML PREMIX IV SCH (11:17)
[2022-07-04] MEDS: ROSUVASTATIN 20 MG TABLET PO SCH (21:21)
[2022-07-05] MEDS: MORPHINE 2 MG/1 ML SYRINGE IV PRN (01:23)
[2022-07-05] MEDS: methylPREDNISolone SOD SUC 40 MG/1 ML VIAL IV SCH ×4 (03:42→21:02)
[2022-07-05 05:38] LABS: Calcium 8.9 MG/DL (8.5-10.1); Osmolality,Calculated 280.7 MOS/KG (273-304); Potassium 5.3 MMOL/L (3.5-5.1)
[2022-07-05 06:22] LABS: Basophils % 0.1 % (0.0-0.8); Hematocrit 30.6 VOL% (42.0-52.0); Hemoglobin 10.3 GM/DL (14.0-18.0); Immature Granulocytes % 0.8 %; Immature Granulocytes Absolute 0.12 #; Lymphocytes # 0.9 10*3/uL (1.4-4.0); Lymphocytes % 5.8 % (21.2-54.2); Mean Corpuscular HGB Conc 33.7 GM/DL (32-36); Mean Corpuscular Volume 97.8 FL (87-102); Mean Platelet Volume 10.7 FL (9.6-12.0); Monocytes # 0.7 10*3/uL (0.11-0.8); Monocytes % 4.4 % (1.7-12.7); Neutrophils % 88.9 % (38.7-73.9); Platelet Count 331 T/CUMM (130-400); Red Blood Count 3.13 MC/CUMM (3.8-5.5); Red Cell Distribution Width 12.3 % (9.3-17.3)
[2022-07-05] MEDS: LEVOFLOXACIN INJ 500 MG/100 ML PREMIX IV SCH (08:46)
[2022-07-05] MEDS: IBUPROFEN 800 MG TABLET PO SCH ×2 (08:48→21:01)
[2022-07-05] MEDS: ASCORBIC ACID 500 MG TABLET PO SCH ×2 (08:48→21:00)
[2022-07-05] MEDS: FENOFIBRATE 160 MG TABLET PO SCH (08:49)
[2022-07-05] MEDS: buPROPion SR 150 MG TABLET PO SCH ×2 (08:49→21:00)
[2022-07-05] MEDS: ONDANSETRON 4 MG TABLET PO SCH (08:49)
[2022-07-05] MEDS: ASPIRIN EC 81 MG TABLET PO SCH (08:49)
[2022-07-05] MEDS: PANTOPRAZOLE 40 MG TABLET PO SCH (08:49)
[2022-07-05] MEDS: METOPROLOL TARTRATE 25 MG TABLET PO SCH ×2 (08:49→21:01)
[2022-07-05] MEDS: FUROSEMIDE 40 MG/4 ML VIAL IV SCH ×2 (08:55→16:44)
[2022-07-05] MEDS: ENOXAPARIN 40 MG/0.4 ML SYRINGE SUBCUT SCH (11:50)
[2022-07-05 11:53] LABS: Calcium 9.8 MG/DL (8.5-10.1); Potassium 3.8 MMOL/L (3.5-5.1)
[2022-07-05] MEDS ORDERED: MELATONIN 3 MG TABLET PO PRN (14:01)
[2022-07-05] MEDS: ROSUVASTATIN 20 MG TABLET PO SCH (21:00)
[2022-07-05] MEDS: oxyCODONE/ACETAMINOPHEN 5-325 MG TABLET PO PRN (21:01)
[2022-07-06] MEDS: methylPREDNISolone SOD SUC 40 MG/1 ML VIAL IV SCH ×3 (03:18→23:40)
[2022-07-06 06:47] LABS: Basophils % 0.1 % (0.0-0.8); Hematocrit 29.4 VOL% (42.0-52.0); Immature Granulocytes % 1.2 %; Immature Granulocytes Absolute 0.25 #; Lymphocytes # 1.1 10*3/uL (1.4-4.0); Lymphocytes % 5.1 % (21.2-54.2); Mean Corpuscular Volume 95.8 FL (87-102); Mean Platelet Volume 10.6 FL (9.6-12.0); Monocytes # 0.9 10*3/uL (0.11-0.8); Monocytes % 4.5 % (1.7-12.7); Neutrophils % 89.1 % (38.7-73.9); Platelet Count 357 T/CUMM (130-400); Red Blood Count 3.07 MC/CUMM (3.8-5.5); Red Cell Distribution Width 12.4 % (9.3-17.3); White Blood Count 20.4 T/CUMM (4-12)
[2022-07-06 07:13] LABS: Lymphocytes 6 % (20-55); Platelet Estimate Adequate; Total Cells Counted 100
[2022-07-06 07:17] LABS: Calcium 9.9 MG/DL (8.5-10.1); Osmolality,Calculated 283.7 MOS/KG (273-304)
[2022-07-06] MEDS: LEVOFLOXACIN INJ 500 MG/100 ML PREMIX IV SCH (10:06)
[2022-07-06] MEDS: PANTOPRAZOLE 40 MG TABLET PO SCH (10:07)
[2022-07-06] MEDS: buPROPion SR 150 MG TABLET PO SCH ×2 (10:07→20:11)
[2022-07-06] MEDS: ASCORBIC ACID 500 MG TABLET PO SCH ×2 (10:07→20:11)
[2022-07-06] MEDS: ONDANSETRON 4 MG TABLET PO SCH (10:08)
[2022-07-06] MEDS: FENOFIBRATE 160 MG TABLET PO SCH (10:08)
[2022-07-06] MEDS: ASPIRIN EC 81 MG TABLET PO SCH (10:08)
[2022-07-06] MEDS: METOPROLOL TARTRATE 25 MG TABLET PO SCH ×2 (10:08→20:10)
[2022-07-06] MEDS: IBUPROFEN 800 MG TABLET PO SCH ×2 (10:08→20:11)
[2022-07-06] MEDS: FUROSEMIDE 40 MG/4 ML VIAL IV SCH ×2 (10:17→15:38)
[2022-07-06] MEDS: ENOXAPARIN 40 MG/0.4 ML SYRINGE SUBCUT SCH (13:21)
[2022-07-06] MEDS: ROSUVASTATIN 20 MG TABLET PO SCH (20:11)
[2022-07-06] MEDS: oxyCODONE/ACETAMINOPHEN 5-325 MG TABLET PO PRN (23:38)
[2022-07-07 05:12] LABS: Basophils % 0.1 % (0.0-0.8); Hematocrit 30.5 VOL% (42.0-52.0); Hemoglobin 10.1 GM/DL (14.0-18.0); Immature Granulocytes Absolute 0.14 #; Lymphocytes # 1.1 10*3/uL (1.4-4.0); Lymphocytes % 7.8 % (21.2-54.2); Mean Corpuscular HGB Conc 33.1 GM/DL (32-36); Mean Corpuscular Volume 97.4 FL (87-102); Mean Platelet Volume 10.8 FL (9.6-12.0); Monocytes # 0.8 10*3/uL (0.11-0.8); Monocytes % 5.6 % (1.7-12.7); Neutrophils % 85.5 % (38.7-73.9); Platelet Count 349 T/CUMM (130-400); Red Blood Count 3.13 MC/CUMM (3.8-5.5); Red Cell Distribution Width 12.2 % (9.3-17.3); White Blood Count 14.7 T/CUMM (4-12)
[2022-07-07 05:27] LABS: Calcium 9.1 MG/DL (8.5-10.1); Osmolality,Calculated 283.5 MOS/KG (273-304); Potassium 3.8 MMOL/L (3.5-5.1)
[2022-07-07] MEDS: methylPREDNISolone SOD SUC 40 MG/1 ML VIAL IV SCH (06:04)
[2022-07-07] MEDS ORDERED: LEVOFLOXACIN 500 MG TABLET PO SCH (09:00)
[2022-07-07] MEDS: IBUPROFEN 800 MG TABLET PO SCH (09:34)
[2022-07-07] MEDS: PANTOPRAZOLE 40 MG TABLET PO SCH (09:34)
[2022-07-07] MEDS: buPROPion SR 150 MG TABLET PO SCH (09:34)
[2022-07-07] MEDS: FENOFIBRATE 160 MG TABLET PO SCH (09:34)
[2022-07-07] MEDS: ASCORBIC ACID 500 MG TABLET PO SCH (09:34)
[2022-07-07] MEDS: METOPROLOL TARTRATE 25 MG TABLET PO SCH (09:35)
[2022-07-07] MEDS: ASPIRIN EC 81 MG TABLET PO SCH (09:35)
[2022-07-07] MEDS: FUROSEMIDE 40 MG/4 ML VIAL IV SCH (09:38)
[2022-07-07] MEDS: ONDANSETRON 4 MG TABLET PO SCH (09:46)
[2022-07-07 12:17] VITALS: BP 111/71
[2022-07-07] MEDS: ENOXAPARIN 40 MG/0.4 ML SYRINGE SUBCUT SCH (12:43)
== END 2022-07-07 12:55 | disposition home health service (06) | DRG 315 ==
LOC: N.ED 21:50 → N.TELES 23:00 → N.EDINP 23:24 → SUATTDRO 23:24 → N.TELES 07-04 00:42 → UNDODISIN 07-04 00:44
PROVIDERS: ADMIT Family Medicine; ATTEND Family Medicine

== ENCOUNTER 2022-07-18 09:43 | Inpatient (IN) ==
[2022-07-18] MEDS ORDERED: GLUCAGON 1 MG VIAL IM PRN (09:58)
[2022-07-18] MEDS ORDERED: DEXTROSE 10% 250 ML BAG IV PRN (09:58)
[2022-07-18 12:26] LABS: Basophils % 0.1 % (0.0-0.8); Eosinophils # 0.1 10*3/uL (0.0-0.87); Eosinophils % 1.7 % (0.00-10.9); Hematocrit 31.2 VOL% (42.0-52.0); Hemoglobin 10.1 GM/DL (14.0-18.0); Immature Granulocytes % 1.5 %; Immature Granulocytes Absolute 0.11 #; Lymphocytes # 1.8 10*3/uL (1.4-4.0); Lymphocytes % 24.2 % (21.2-54.2); Mean Corpuscular HGB Conc 32.4 GM/DL (32-36); Mean Corpuscular Volume 100.3 FL (87-102); Mean Platelet Volume 10.1 FL (9.6-12.0); Monocytes # 0.9 10*3/uL (0.11-0.8); Monocytes % 12.5 % (1.7-12.7); Platelet Count 256 T/CUMM (130-400); Red Blood Count 3.11 MC/CUMM (3.8-5.5); Red Cell Distribution Width 13.2 % (9.3-17.3); White Blood Count 7.5 T/CUMM (4-12)
[2022-07-18 12:46] LABS: Band Neutrophils 3 % (0-10); Lymphocytes 24 % (20-55); Platelet Estimate Normal; Total Cells Counted 100
[2022-07-18 12:55] LABS: Alanine Aminotransferase 22 U/L (16-61); Albumin 3.2 G/DL (3.4-5.0); Alkaline Phosphatase 96 U/L (45-117); Aspartate Amino Transferase 9 U/L (0-37); Bilirubin,Total < 0.39 MG/DL (0.20-1.00); Blood Urea Nitrogen 13 MG/DL (7-18); Calcium 9.7 MG/DL (8.5-10.1); Carbon Dioxide 25 MMOL/L (21-32); Chloride 109 MMOL/L (98-107); Glucose 104 MG/DL (74-106); Osmolality,Calculated 278.4 MOS/KG (273-304); Potassium 3.8 MMOL/L (3.5-5.1); Sodium 140 MMOL/L (136-145); Total Protein 6.9 G/DL (6.4-8.2)
[2022-07-18] MEDS: oxyCODONE/ACETAMINOPHEN 5-325 MG TABLET PO PRN ×3 (13:20→21:49)
[2022-07-18] MEDS: VANCOMYCIN INJ 1,500 MG in SODIUM CHLORIDE 0.9% 500 ML IV SCH (16:09)
[2022-07-18] MEDS: SODIUM CHLORIDE 0.9% 1,000 ML IV SCH (16:09)
[2022-07-18] MEDS: CHLORHEXIDINE 4% SOLN 118 ML BOTTLE TOP SCH ×2 (16:13→21:46)
[2022-07-18] MEDS: CHLORHEXIDINE 0.12% ORAL RINSE 60 ML BOTTLE SWISH/SPIT SCH ×2 (16:13→21:45)
[2022-07-18] MEDS: guaiFENesin/DM ER 600-30 MG TABLET PO PRN (21:48)
[2022-07-19] MEDS: oxyCODONE/ACETAMINOPHEN 5-325 MG TABLET PO PRN ×3 (03:41→20:33)
[2022-07-19] MEDS: CHLORHEXIDINE 4% SOLN 118 ML BOTTLE TOP SCH (04:41)
[2022-07-19] MEDS: CHLORHEXIDINE 0.12% ORAL RINSE 60 ML BOTTLE SWISH/SPIT SCH ×2 (09:04→20:34)
[2022-07-19] MEDS: VANCOMYCIN INJ 1,500 MG in SODIUM CHLORIDE 0.9% 500 ML IV SCH (09:08)
[2022-07-19] MEDS ORDERED: LIDOCAINE 2% 5 ML VIAL ONE (12:17)
[2022-07-19] MEDS ORDERED: ONDANSETRON 4 MG/2 ML VIAL ONE (12:17)
[2022-07-19] MEDS ORDERED: propofoL 200 MG/20 ML VIAL IV ONE (12:17)
[2022-07-19] MEDS ORDERED: fentaNYL 100 MCG/2 ML VIAL ONE (12:22)
[2022-07-19] MEDS ORDERED: MIDAZOLAM 2 MG/2 ML VIAL ONE (12:22)
[2022-07-19] MEDS ORDERED: PHENYLEPHRINE 1 MG/10 ML SYRINGE IV ONE (13:01)
[2022-07-19] MEDS ORDERED: SEVOFLURANE 1 UNIT/15 MINUTE INH ONE ×3 (13:12)
[2022-07-19] MEDS ORDERED: ETOMIDATE 40 MG/20 ML VIAL IV ONE (13:12)
[2022-07-19] MEDS: SODIUM CHLORIDE 0.9% 1,000 ML IV SCH (17:08)
[2022-07-19] MEDS: PANTOPRAZOLE 40 MG TABLET PO SCH (17:09)
[2022-07-19] MEDS: ROSUVASTATIN 20 MG TABLET PO SCH (20:33)
[2022-07-19] MEDS: guaiFENesin/DM ER 600-30 MG TABLET PO PRN (20:33)
[2022-07-20] MEDS: VANCOMYCIN INJ 1,500 MG in SODIUM CHLORIDE 0.9% 500 ML IV SCH ×2 (02:37→20:00)
[2022-07-20] MEDS: oxyCODONE/ACETAMINOPHEN 5-325 MG TABLET PO PRN ×5 (02:42→21:04)
[2022-07-20 05:31] LABS: Basophils % 0.3 % (0.0-0.8); Eosinophils # 0.2 10*3/uL (0.0-0.87); Eosinophils % 2.4 % (0.00-10.9); Hemoglobin 9.7 GM/DL (14.0-18.0); Immature Granulocytes % 0.7 %; Immature Granulocytes Absolute 0.05 #; Lymphocytes # 1.8 10*3/uL (1.4-4.0); Lymphocytes % 24.2 % (21.2-54.2); Mean Corpuscular HGB Conc 32.3 GM/DL (32-36); Mean Platelet Volume 10.6 FL (9.6-12.0); Monocytes # 0.9 10*3/uL (0.11-0.8); Monocytes % 11.4 % (1.7-12.7); Platelet Count 257 T/CUMM (130-400); Red Blood Count 2.97 MC/CUMM (3.8-5.5); Red Cell Distribution Width 12.8 % (9.3-17.3); White Blood Count 7.5 T/CUMM (4-12)
[2022-07-20 05:45] LABS: Albumin 2.7 G/DL (3.4-5.0); Bilirubin,Total 0.4 MG/DL (0.20-1.00); Calcium 8.8 MG/DL (8.5-10.1); Potassium 3.5 MMOL/L (3.5-5.1); Total Protein 6.2 G/DL (6.4-8.2)
[2022-07-20] MEDS: buPROPion XL 150 MG TABLET PO SCH ×2 (08:02→20:58)
[2022-07-20] MEDS: CHLORHEXIDINE 0.12% ORAL RINSE 60 ML BOTTLE SWISH/SPIT SCH ×2 (08:02→20:59)
[2022-07-20] MEDS: ASPIRIN EC 81 MG TABLET PO SCH (08:03)
[2022-07-20] MEDS: PANTOPRAZOLE 40 MG TABLET PO SCH (08:03)
[2022-07-20] MEDS: ASCORBIC ACID 500 MG TABLET PO SCH ×2 (08:03→20:58)
[2022-07-20] MEDS: guaiFENesin/DM ER 600-30 MG TABLET PO PRN ×2 (11:43→21:04)
[2022-07-20] MEDS: ROSUVASTATIN 20 MG TABLET PO SCH (20:58)
[2022-07-20] MEDS: FENOFIBRATE 160 MG TABLET PO SCH (20:58)
[2022-07-21] MEDS: oxyCODONE/ACETAMINOPHEN 5-325 MG TABLET PO PRN ×3 (04:55→17:27)
[2022-07-21 05:57] LABS: Basophils % 0.2 % (0.0-0.8); Eosinophils # 0.2 10*3/uL (0.0-0.87); Eosinophils % 3.5 % (0.00-10.9); Hematocrit 29.5 VOL% (42.0-52.0); Hemoglobin 9.5 GM/DL (14.0-18.0); Immature Granulocytes % 0.3 %; Immature Granulocytes Absolute 0.02 #; Lymphocytes # 1.3 10*3/uL (1.4-4.0); Lymphocytes % 21.1 % (21.2-54.2); Mean Corpuscular HGB Conc 32.2 GM/DL (32-36); Mean Platelet Volume 10.3 FL (9.6-12.0); Monocytes # 0.8 10*3/uL (0.11-0.8); Monocytes % 13.3 % (1.7-12.7); Neutrophils % 61.6 % (38.7-73.9); Platelet Count 226 T/CUMM (130-400); Red Blood Count 2.98 MC/CUMM (3.8-5.5); Red Cell Distribution Width 12.5 % (9.3-17.3); White Blood Count 6.1 T/CUMM (4-12)
[2022-07-21 06:19] LABS: Calcium 8.6 MG/DL (8.5-10.1); Potassium 3.9 MMOL/L (3.5-5.1)
[2022-07-21] MEDS: CHLORHEXIDINE 0.12% ORAL RINSE 60 ML BOTTLE SWISH/SPIT SCH ×2 (09:10→20:40)
[2022-07-21] MEDS: buPROPion XL 150 MG TABLET PO SCH ×2 (09:10→20:39)
[2022-07-21] MEDS: PANTOPRAZOLE 40 MG TABLET PO SCH (09:10)
[2022-07-21] MEDS: ASPIRIN EC 81 MG TABLET PO SCH (09:10)
[2022-07-21] MEDS: ASCORBIC ACID 500 MG TABLET PO SCH ×2 (09:10→20:39)
[2022-07-21] MEDS: VANCOMYCIN INJ 1,500 MG in SODIUM CHLORIDE 0.9% 500 ML IV SCH ×2 (09:12→20:39)
[2022-07-21] MEDS: guaiFENesin/DM ER 600-30 MG TABLET PO PRN ×2 (09:32→20:44)
[2022-07-21] MEDS: FENOFIBRATE 160 MG TABLET PO SCH (20:39)
[2022-07-21] MEDS: ROSUVASTATIN 20 MG TABLET PO SCH (20:39)
[2022-07-22] MEDS: oxyCODONE/ACETAMINOPHEN 5-325 MG TABLET PO PRN ×5 (00:08→20:31)
[2022-07-22 05:39] LABS: Basophils % 0.2 % (0.0-0.8); Eosinophils # 0.2 10*3/uL (0.0-0.87); Eosinophils % 3.6 % (0.00-10.9); Hematocrit 30.3 VOL% (42.0-52.0); Hemoglobin 9.8 GM/DL (14.0-18.0); Immature Granulocytes % 0.7 %; Immature Granulocytes Absolute 0.04 #; Lymphocytes # 1.2 10*3/uL (1.4-4.0); Lymphocytes % 19.3 % (21.2-54.2); Mean Corpuscular HGB Conc 32.3 GM/DL (32-36); Mean Corpuscular Volume 99.7 FL (87-102); Mean Platelet Volume 10.2 FL (9.6-12.0); Monocytes # 0.8 10*3/uL (0.11-0.8); Monocytes % 12.8 % (1.7-12.7); Neutrophils % 63.4 % (38.7-73.9); Platelet Count 217 T/CUMM (130-400); Red Blood Count 3.04 MC/CUMM (3.8-5.5); Red Cell Distribution Width 12.5 % (9.3-17.3); White Blood Count 6.1 T/CUMM (4-12)
[2022-07-22 06:03] LABS: Calcium 8.6 MG/DL (8.5-10.1); Potassium 3.7 MMOL/L (3.5-5.1)
[2022-07-22 06:14] LABS: Anisocytosis 1+; Platelet Estimate Normal
[2022-07-22 06:15] LABS: Macrocytosis Slight
[2022-07-22] MEDS: VANCOMYCIN INJ 1,500 MG in SODIUM CHLORIDE 0.9% 500 ML IV SCH ×2 (09:50→20:31)
[2022-07-22] MEDS: guaiFENesin/DM ER 600-30 MG TABLET PO PRN ×2 (09:51→23:07)
[2022-07-22] MEDS: buPROPion XL 150 MG TABLET PO SCH ×2 (09:51→20:31)
[2022-07-22] MEDS: PANTOPRAZOLE 40 MG TABLET PO SCH (09:51)
[2022-07-22] MEDS: ASCORBIC ACID 500 MG TABLET PO SCH ×2 (09:51→20:31)
[2022-07-22] MEDS: ASPIRIN EC 81 MG TABLET PO SCH (09:51)
[2022-07-22] MEDS: CHLORHEXIDINE 0.12% ORAL RINSE 60 ML BOTTLE SWISH/SPIT SCH ×2 (09:52→20:33)
[2022-07-22] MEDS: ROSUVASTATIN 20 MG TABLET PO SCH (20:30)
[2022-07-22] MEDS: FENOFIBRATE 160 MG TABLET PO SCH (20:31)
[2022-07-23] MEDS: oxyCODONE/ACETAMINOPHEN 5-325 MG TABLET PO PRN ×4 (03:59→20:49)
[2022-07-23 05:11] LABS: Basophils % 0.4 % (0.0-0.8); Eosinophils # 0.2 10*3/uL (0.0-0.87); Eosinophils % 3.3 % (0.00-10.9); Hematocrit 30.5 VOL% (42.0-52.0); Hemoglobin 10.1 GM/DL (14.0-18.0); Immature Granulocytes % 0.4 %; Immature Granulocytes Absolute 0.02 #; Lymphocytes # 1.2 10*3/uL (1.4-4.0); Lymphocytes % 22.1 % (21.2-54.2); Mean Corpuscular HGB Conc 33.1 GM/DL (32-36); Mean Corpuscular Volume 97.8 FL (87-102); Mean Platelet Volume 9.6 FL (9.6-12.0); Monocytes # 0.7 10*3/uL (0.11-0.8); Monocytes % 13.8 % (1.7-12.7); Platelet Count 214 T/CUMM (130-400); Red Blood Count 3.12 MC/CUMM (3.8-5.5); Red Cell Distribution Width 12.7 % (9.3-17.3); White Blood Count 5.4 T/CUMM (4-12)
[2022-07-23 05:37] LABS: Osmolality,Calculated 277.3 MOS/KG (273-304); Potassium 3.7 MMOL/L (3.5-5.1)
[2022-07-23 05:56] LABS: Eosinophils 1 % (0-10); Lymphocytes 22 % (20-55); Platelet Estimate Normal; Total Cells Counted 100
[2022-07-23] MEDS: buPROPion XL 150 MG TABLET PO SCH ×2 (08:10→20:50)
[2022-07-23] MEDS: ASCORBIC ACID 500 MG TABLET PO SCH ×2 (08:10→20:49)
[2022-07-23] MEDS: ASPIRIN EC 81 MG TABLET PO SCH (08:10)
[2022-07-23] MEDS: PANTOPRAZOLE 40 MG TABLET PO SCH (08:10)
[2022-07-23] MEDS: CHLORHEXIDINE 0.12% ORAL RINSE 60 ML BOTTLE SWISH/SPIT SCH ×2 (08:12→20:50)
[2022-07-23] MEDS: LEVOFLOXACIN 500 MG TABLET PO SCH (08:13)
[2022-07-23] MEDS: VANCOMYCIN INJ 1,500 MG in SODIUM CHLORIDE 0.9% 500 ML IV SCH (09:17)
[2022-07-23] MEDS: guaiFENesin/DM ER 600-30 MG TABLET PO PRN ×2 (11:06→20:49)
[2022-07-23] MEDS: FENOFIBRATE 160 MG TABLET PO SCH (20:49)
[2022-07-23] MEDS: ROSUVASTATIN 20 MG TABLET PO SCH (20:50)
[2022-07-24] MEDS: oxyCODONE/ACETAMINOPHEN 5-325 MG TABLET PO PRN ×4 (04:25→21:53)
[2022-07-24 04:52] LABS: Basophils % 0.2 % (0.0-0.8); Eosinophils # 0.2 10*3/uL (0.0-0.87); Eosinophils % 3.4 % (0.00-10.9); Hematocrit 31.5 VOL% (42.0-52.0); Hemoglobin 10.2 GM/DL (14.0-18.0); Immature Granulocytes % 0.4 %; Immature Granulocytes Absolute 0.02 #; Lymphocytes # 1.5 10*3/uL (1.4-4.0); Lymphocytes % 27.3 % (21.2-54.2); Mean Corpuscular HGB Conc 32.4 GM/DL (32-36); Mean Corpuscular Volume 98.4 FL (87-102); Mean Platelet Volume 9.6 FL (9.6-12.0); Monocytes # 0.6 10*3/uL (0.11-0.8); Monocytes % 11.8 % (1.7-12.7); Neutrophils % 56.9 % (38.7-73.9); Platelet Count 221 T/CUMM (130-400); Red Cell Distribution Width 12.8 % (9.3-17.3); White Blood Count 5.3 T/CUMM (4-12)
[2022-07-24 05:06] LABS: Calcium 9.3 MG/DL (8.5-10.1); Osmolality,Calculated 278.3 MOS/KG (273-304); Potassium 3.5 MMOL/L (3.5-5.1)
[2022-07-24] MEDS: METOPROLOL TARTRATE 25 MG TABLET PO SCH (08:54)
[2022-07-24] MEDS: ASPIRIN EC 81 MG TABLET PO SCH (08:54)
[2022-07-24] MEDS: buPROPion XL 150 MG TABLET PO SCH ×2 (08:54→21:53)
[2022-07-24] MEDS: ASCORBIC ACID 500 MG TABLET PO SCH ×2 (08:54→21:53)
[2022-07-24] MEDS: PANTOPRAZOLE 40 MG TABLET PO SCH (08:54)
[2022-07-24] MEDS: LEVOFLOXACIN 500 MG TABLET PO SCH (08:55)
[2022-07-24] MEDS: CHLORHEXIDINE 0.12% ORAL RINSE 60 ML BOTTLE SWISH/SPIT SCH ×2 (08:55→21:53)
[2022-07-24] MEDS: guaiFENesin/DM ER 600-30 MG TABLET PO PRN ×2 (08:59→21:53)
[2022-07-24] MEDS: FENOFIBRATE 160 MG TABLET PO SCH (21:53)
[2022-07-24] MEDS: ROSUVASTATIN 20 MG TABLET PO SCH (21:53)
[2022-07-25 05:06] LABS: Basophils % 0.5 % (0.0-0.8); Eosinophils # 0.2 10*3/uL (0.0-0.87); Eosinophils % 3.3 % (0.00-10.9); Hematocrit 33.5 VOL% (42.0-52.0); Hemoglobin 10.9 GM/DL (14.0-18.0); Immature Granulocytes % 0.3 %; Immature Granulocytes Absolute 0.02 #; Lymphocytes # 1.8 10*3/uL (1.4-4.0); Lymphocytes % 31.9 % (21.2-54.2); Mean Corpuscular HGB Conc 32.5 GM/DL (32-36); Mean Corpuscular Volume 98.2 FL (87-102); Mean Platelet Volume 9.9 FL (9.6-12.0); Monocytes # 0.6 10*3/uL (0.11-0.8); Monocytes % 10.9 % (1.7-12.7); Neutrophils % 53.1 % (38.7-73.9); Platelet Count 243 T/CUMM (130-400); Red Blood Count 3.41 MC/CUMM (3.8-5.5); Red Cell Distribution Width 12.9 % (9.3-17.3); White Blood Count 5.8 T/CUMM (4-12)
[2022-07-25 05:32] LABS: Calcium 9.4 MG/DL (8.5-10.1); Osmolality,Calculated 280.1 MOS/KG (273-304); Potassium 3.6 MMOL/L (3.5-5.1)
[2022-07-25] MEDS: METOPROLOL TARTRATE 25 MG TABLET PO SCH (08:55)
[2022-07-25] MEDS: LEVOFLOXACIN 500 MG TABLET PO SCH (08:55)
[2022-07-25] MEDS: ASPIRIN EC 81 MG TABLET PO SCH (08:55)
[2022-07-25] MEDS: ASCORBIC ACID 500 MG TABLET PO SCH (08:55)
[2022-07-25] MEDS: guaiFENesin/DM ER 600-30 MG TABLET PO PRN (08:55)
[2022-07-25] MEDS: CHLORHEXIDINE 0.12% ORAL RINSE 60 ML BOTTLE SWISH/SPIT SCH (08:55)
[2022-07-25] MEDS: PANTOPRAZOLE 40 MG TABLET PO SCH (08:55)
[2022-07-25] MEDS: buPROPion XL 150 MG TABLET PO SCH (08:55)
[2022-07-25] MEDS: oxyCODONE/ACETAMINOPHEN 5-325 MG TABLET PO PRN ×2 (09:05→13:22)
[2022-07-25 12:44] VITALS: BP 118/55
== END 2022-07-25 15:10 | disposition home health service (06) | DRG 909 ==
LOC: N.5E 11:39 → N.TELEN 07-19 18:50